=== PATIENT | female | born 1940 | race Caucasian/White ===

== ENCOUNTER → 2016-12-15 | Outpatient (CLI) | payer OTHER | LOC: ULTRA 07:35 | DX: K76.89 Other specified diseases of liver (principal); R14.0 Abdominal distension (gaseous) ==

== ENCOUNTER → 2017-10-02 | Outpatient (CLI) | payer OTHER | LOC: CAT 08:17 | DX: K57.30 Diverticulosis of large intestine without perforation or abscess without bleeding (principal); K76.9 Liver disease, unspecified; J98.4 Other disorders of lung ==

== ENCOUNTER → 2018-01-17 | Outpatient (CLI) | payer OTHER | LOC: ULTRA 10:18 | DX: E04.1 Nontoxic single thyroid nodule (principal) ==